=== PATIENT | male | born 1995 | race Caucasian/White ===

== ENCOUNTER 2021-11-04 09:00 | Emergency (ER) | payer BC ==
[~2021-11-04] VITALS: Ht 177.8 cm; Wt 81.7 kg
[2021-11-04] MEDS ORDERED: SERTRALINE HCL100 MG PO (09:11)
[2021-11-04 09:42] VITALS: BP 139/83
== END 2021-11-04 09:43 | disposition home or self-care (01) ==
LOC: M.ERS 09:00
DX: J06.9 Acute upper respiratory infection, unspecified (principal); Z20.822 Contact with and (suspected) exposure to COVID-19; F41.9 Anxiety disorder, unspecified; F32.9 Major depressive disorder, single episode, unspecified; Z79.899 Other long term (current) drug therapy